=== PATIENT | male | born 1960 | race Two or more races ===

== ENCOUNTER 2021-06-01 15:48 | Outpatient (REF) | payer OTHER, SELFPAY | END 2021-06-01 15:49 | disposition home or self-care (01) | LOC: HO.LAB 15:48 | PROVIDERS: PCP Internal Medicine; Visit Provider Internal Medicine | DX: Z20.822 Contact with and (suspected) exposure to COVID-19 (principal) | CPT/HCPCS: C9803; U0003; U0005 ==

== ENCOUNTER 2021-07-08 13:38 | Outpatient (REF) | payer OTHER, SELFPAY | END 2021-07-08 13:39 | disposition home or self-care (01) | LOC: HO.LAB 13:38 | PROVIDERS: PCP Internal Medicine; Visit Provider Internal Medicine | DX: Z20.822 Contact with and (suspected) exposure to COVID-19 (principal) | CPT/HCPCS: C9803; U0003; U0005 ==

== ENCOUNTER 2021-09-10 12:46 | Outpatient (REF) | payer OTHER, SELFPAY ==
[2021-09-10 15:52] LABS: COVID-19 Test Positive (Negative); IDNOW Serial# 16C4AD1C
== END 2021-09-10 12:47 | disposition home or self-care (01) ==
LOC: HO.LAB 12:46
PROVIDERS: Visit Provider Internal Medicine
DX: Z20.822 Contact with and (suspected) exposure to COVID-19 (principal)
CPT/HCPCS: 36415; 87635; C9803